=== PATIENT | female | born 1995 | race Two or more races ===

== ENCOUNTER 2017-02-21 12:56 | Emergency (ER) | payer BC ==
[2017-02-21 13:52] VITALS: BP 118/71
--- NOTE | 2017-02-21 14:37 | UC ---
Complaint Female HPI - HPI Summary HPI Summary: In September pt went for laser hair removal treatment. Within 1-2 days, noticed a spot on her mons pubis that looked like a tiny blister or a pimple. She squeezed it and it hurt, but did not seem like a pimple. In the ensuing weeks slowly developed more and more spots, which she usually scratches or picks off ( this is painful but they are mostly not itchy or painful). Now has seen some on her thighs. [facility] and told to ignore the spots and they should go away, but now that they are spreading pt is here for further evaluation. Denies any vaginal symptoms, abdominal pain, or odor. - History Of Current Complaint Chief Complaint: UCGU Stated Complaint: PERSONAL Time Seen by Provider: 02/21/17 13:58 Hx Obtained From: Patient ?: No Onset/Duration: Gradual Onset, Lasting Weeks Timing: Constant Severity Initially: Mild Severity Currently: Mild Character: Not Applicable Aggravating Factor(s): Nothing Alleviating Factor(s): Nothing - Allergies/Home Medications Allergies/Adverse Reactions: Allergies Allergy/AdvReac Type Severity Reaction Status Date / Time No Known Allergies Allergy Verified 07/21/16 20:48 PMH/Surg Hx/FS Hx/Imm Hx Endocrine History Of: Denies: Diabetes, Thyroid Disease Cardiovascular History Of: Denies: Cardiac Disorders, Hypertension, Pacemaker/ICD Respiratory History Of: Denies: COPD, Asthma GI/ History Of: Denies: Ulcer, Renal Disease - Surgical History Surgical History: Yes Surgery Procedure, Year, and Place: APPENDECTOMY - Family History Known Family History: Positive: None - Social History Lives: Alone Alcohol Use: Occasionally Substance Use Type: None Smoking Status (MU): Never Smoked Tobacco Review of Systems Constitutional: Negative Skin: Rash - groin Eyes: Negative ENT: Negative Respiratory: Negative Cardiovascular: Negative Gastrointestinal: Negative Genitourinary: Negative Motor: Negative Neurovascular: Negative Musculoskeletal: Negative Neurological: Negative Psychological: Negative All Other Systems Reviewed And Are Negative: Yes Physical Exam Triage Information Reviewed: Yes Appearance: Well-Appearing, No Pain Distress, Well-Nourished Vital Signs: Initial Vital Signs Temp 98.3 F 02/21/17 13:35 Pulse 60 02/21/17 13:35 Resp 16 02/21/17 13:35 BP 118/71 02/21/17 13:35 Pulse Ox 100 02/21/17 13:35 Vital Signs Reviewed: Yes Eye Exam: Normal Eyes: Positive: Conjunctiva Clear ENT Exam: Normal ENT: Positive: Normal ENT inspection, Hearing grossly normal, Pharynx normal, TMs normal Dental Exam: Normal Neck exam: Normal Neck: Positive: Supple, Nontender, No Lymphadenopathy Respiratory Exam: Normal Respiratory: Positive: Chest non-tender, Lungs clear, Normal breath sounds, No respiratory distress, No accessory muscle use Cardiovascular Exam: Normal Cardiovascular: Positive: RRR, No Murmur Musculoskeletal Exam: Normal Musculoskeletal: Positive: ROM Intact Neurological Exam: Normal Neurological: Positive: Alert Psychological Exam: Normal Skin Exam: Other - multiple scabbed excoriated tiny lesions on mons pubis and labia, a small cluster of undisturbed lesions appear to be 2-3mm smooth umbilicated papules. no erythema, streaking, or drainage. Complaint Female Dx - Differential Dx/Diagnosis Provider Diagnoses: molluscum contagiosum on groin Discharge - Discharge Plan Condition: Stable Disposition: HOME Prescriptions: Podofilox 1 applic TOPICAL BID #1 kimmie Patient Education Materials: Molluscum Contagiosum (ED) Additional Instructions: As we discussed, these spots are caused by a virus and will usually resolve on their own (though it can take months or even years in some cases). Here is some information about the spreading of this virus: TRANSMISSION: Like many viruses in the poxvirus family, molluscum contagiosum is spread by direct [id number] contact and thus can occur anywhere on the body. The virus can be transmitted via autoinoculation by scratching or touching a lesion. For example, if the lesions develop on the face, shaving may spread the virus. The only known host for molluscum contagiosum is humans. Infection can also be spread via fomites on bath sponges or towels or through skin contact during participation in contact sports. An association of molluscum contagiosum with swimming pool use also has been reported. When it occurs in the genital region in sexually active individuals, molluscum contagiosum is classified as a sexually transmitted disease. In contrast, autoinoculation, rather than sexual contact, is responsible for most anogenital lesions in children. Estimates for the incubation period of the virus vary from one week to six months, but it is typically characterized as being between two and six weeks
== END 2017-02-21 14:40 | disposition home or self-care (01) ==
LOC: UCEAST 12:56
DX: B08.1 Molluscum contagiosum (principal)
CPT/HCPCS: 99212; G0463

== ENCOUNTER 2017-04-08 07:32 | Emergency (ER) | payer BC ==
[2017-04-08 07:48] VITALS: BP 132/64
[2017-04-08] MEDS ORDERED: cefTRIAXone VIAL(*) 250 MG VIAL IM ONE (10:41)
[2017-04-08] MEDS ORDERED: Lidocaine 1% INJ* 10 MG/ML 30 ML SDV INJ ONE (10:49)
[2017-04-08] MEDS ORDERED: Lidocaine 1% MPF* 2 ML VIAL ONE (10:54)
--- NOTE | 2017-04-08 23:05 | UC ---
aidan Delgado Timothy, scribed for Yeny Tanner MD on 04/08/17 at 0955 . Complaint Female HPI - HPI Summary HPI Summary: Sona Finch is a 21 yo female presenting to [facility] with nausea, 6/10 lower abd cramping, chills, lightheadedness turning into JULIAN, and lower right back pain for the past 10 days. She also notes some brown and pink spotting, and denies that it is due to her menstrual cycle. Triage notes a fluid filled spot on her labia which is pruritic. She has had unprotected sex recently and has an IUD in place. She is requesting STI testing. She denies any V/D, fevers, diaphoresis. She states that application of a heating pad increases her pain. She has self- medicated with ibuprofen. Her MHx includes appendectomy, migraine. - History Of Current Complaint Stated Complaint: DIZZINESS Hx Obtained From: Patient Hx Last Menstrual Period: 03/19/17-IUD Onset/Duration: Sudden Onset, Lasting Days, Still Present Timing: Constant Severity Initially: Moderate Severity Currently: Moderate Pain Intensity: 6 Pain Scale Used: 0-10 Numeric Character: Cramping Associated Signs And Symptoms: Positive: Back Pain - lower right, Vaginal Discharge - blood - Allergies/Home Medications Allergies/Adverse Reactions: Allergies Allergy/AdvReac Type Severity Reaction Status Date / Time No Known Allergies Allergy Verified 07/21/16 20:48 Home Medications: Home Medications Ibuprofen TAB* [Advil TAB*] 4 tab PO PRN 04/08/17 [History] PMH/Surg Hx/FS Hx/Imm Hx Neurological History: Migraine - Surgical History Surgical History: Yes Surgery Procedure, Year, and Place: APPENDECTOMY - Family History Known Family History: Negative: Cardiac Disease, Hypertension, Diabetes - Social History Alcohol Use: Occasionally Substance Use Type: None Smoking Status (MU): Never Smoked Tobacco Review of Systems Constitutional: Chills Skin: Negative Eyes: Negative ENT: Negative Respiratory: Negative Gastrointestinal: Abdominal Pain - cramping, Other - nausea Genitourinary: Other - spotting - red/pink. Fluid filled spot on labia which is pruritic Motor: Negative Neurovascular: Negative Musculoskeletal: Other: - right lower back pain Neurological: Headache - lightheadedness turns into JULIAN Psychological: Negative All Other Systems Reviewed And Are Negative: Yes Physical Exam Triage Information Reviewed: Yes Vital Signs: Initial Vital Signs Temp 98.2 F 04/08/17 07:35 Pulse 76 04/08/17 07:35 Resp 16 04/08/17 07:35 BP 132/64 04/08/17 07:35 Pulse Ox 100 04/08/17 07:35 Vital Signs Reviewed: Yes - Additional Comments Constitutional: Pt is awake, A&Ox3, in no acute distress,and cooperative. HEENT: atraumatic, SHANE, normal TMs and canals bilaterally with no discharge. The nose shows no discharge or lesions. Throat: pink, no purulence, teeth in good repair. Neck: supple, no masses or adenopathy, no JVD, no thyromegaly. Respiratory: Lungs CTA bilaterally Cardiovascular: RRR, no murmur. Abd: soft, mild suprapubic tenderness, no masses, no organomegaly, mild bilateral CVA tenderness Bowel Sounds: present and normal Musculoskeletal: Full ROM, good color to extremities, good tone, power 5/5 in all extremities Neuro: AOx3, cooperative, coherent Skin: clear, good turgor Re-Evaluation - Re-Evaluation First Eval Re-Evaluation Time: 10:31 Change: Unchanged Comment: Pelvic exam was performed: Erythematous vulva with some swelling of othe labia and mild tenderness throughout. There is a whitish mucousy discharge in the vagina. The vaginal wall and cervical os and cervix are erythematous. The cervical os is friable. The cervix is tender with movement and there is mild adnexal tenderness but no swellings or masses. There is folliculitis of the mons pubis. Complaint Female Dx - Course Course Of Treatment: Sona Finch is a 21 yo female presenting to [facility] with 6/ 10 lower abd pain, nausea, chills, lightheadedness turning into JULIAN, and lower right back pain for the past 10 days. After clinical examination she will be discharged home with PID and folliculitis with appropriate instructions. - Differential Dx/Diagnosis Differential Diagnosis/HQI/PQRI: Pelvic Inflammatory Disease, Other - STI, yeast infection Provider Diagnoses: PID, folliculitis Discharge - Discharge Plan Condition: Stable Disposition: HOME Prescriptions: Azithromycin [Azithromycin 1 GM POWDER] 1 gm PO ONCE #1 pow Patient Education Materials: Pelvic Inflammatory Disease (ED), Folliculitis (ED ) Referrals: [facility] [place] [facility] REFERRAL [Outside] - 2 Days Additional Instructions: Please follow up with the primary care physician provided regarding your visit to urgent care today. Continue ibuprofen as needed for pain, 600mg every 6 hours. Please take the prescribed azithromycin today after eating. Cultures were taken today which will not be available for approximately 3 days, at which point you will be contacted if the results warrant a change of your treatment plan. Return to urgent care or the emergency department with any new or recurring symptoms. The documentation as recorded by the aidan ellis Timothy accurately reflects the service I personally performed and the decisions made by me, Yeny Tanner MD.
--- NOTE | 2017-04-09 18:42 | UC ---
Progress - Progress Note Progress Note: Please inform pt that swabs were negative for gonorrhea and chlamydia, but positive for vaginal yeast and gardnerella. PO diflucan and vaginal clindamycin has been sent to [facility] pharmacy. She should finish her azithromycin as prescribed and make a follow-up appointment with her primary care provider. Re-Evaluation - Re-Evaluation First Eval Re-Evaluation Time: 10:31 Change: Unchanged Comment: Pelvic exam was performed: Erythematous vulva with some swelling of othe labia and mild tenderness throughout. There is a whitish mucousy discharge in the vagina. The vaginal wall and cervical os and cervix are erythematous. The cervical os is friable. The cervix is tender with movement and there is mild adnexal tenderness but no swellings or masses. There is folliculitis of the mons pubis.
== END 2017-04-08 11:04 | disposition home or self-care (01) ==
LOC: UCEAST 07:32
DX: N73.9 Female pelvic inflammatory disease, unspecified (principal); L73.9 Follicular disorder, unspecified
CPT/HCPCS: 81003; 84702; 87480; 87491; 87510; 87591; 87660; 99212; G0463; J0696; J2001